=== PATIENT | female | born 1975 | race African-American/Black ===

== ENCOUNTER 2020-10-14 00:52 | Emergency (ER) | payer SELFPAY ==
[~2020-10-14] VITALS: Ht 167.6 cm; Wt 63.0 kg
[2020-10-14 00:57] VITALS: BP 118/76
== END 2020-10-14 02:25 | disposition left against medical advice (07) ==
LOC: ER 00:52
DX: Z53.21 Procedure and treatment not carried out due to patient leaving prior to being seen by health care provider (principal)